=== PATIENT | female | born 1995 ===

== ENCOUNTER 2023-09-05 03:12 | Outpatient (CLI) | payer SELFPAY ==
[2023-09-07 12:13] LABS: TB Interpretation Negative (Negative); TB2 Ag minus Nil 0.02 IU/mL
== END 2023-09-05 03:13 | disposition home or self-care (01) ==
LOC: LBO 03:13
PROVIDERS: Visit Provider Nurse Practitioner Family
DX: Z02.1 Encounter for pre-employment examination (principal); Z11.1 Encounter for screening for respiratory tuberculosis
CPT/HCPCS: 36415; 86480

== ENCOUNTER 2024-01-04 10:14 | Emergency (ER) | payer OTHER, SELFPAY ==
[2024-01-04 10:21] VITALS: BP 136/80; PULSE 64; RESP 18; TEMP 36.7; O2SAT 98
--- NOTE | 2024-01-04 10:30 | DI.RAD_ITS ---
Exam(s) XR CHEST 2V PA LATERAL EXAM: XR CHEST 2V PA LATERAL CLINICAL HISTORY: fatigue TECHNIQUE: 2D digital imaging was performed. Two views. COMPARISON: No exams were available for comparison FINDINGS: HEART: Normal size. Aorta: Not dilated. PULMONARY VASCULATURE: Normal. MEDIASTINUM: Unremarkable. LUNGS: Clear. PLEURAL SPACE: No pleural effusion or pneumothorax. BONE:Unremarkable for age. SOFT TISSUES: Unremarkable. IMPRESSION: No acute abnormality. DATA REPOSITORY: RADIATION DOSE DELIVERED:
--- NOTE | 2024-01-04 10:31 | ED.GENADUL_ITS ---
Discharge Plan Disposition Patient Disposition: Home Condition: Stable Discharge Details Chief Complaint: InsectBite Clinical Impression: Body aches Primary Care Provider: Unknown,Unknown ED Provider: Victorino Kearns Home Meds and New Rx's Prescriptions: No Action escitalopram oxalate [Lexapro] 20 mg tablet 20 mg PO DAILY multivitamin Tablet 1 tab PO DAILY cholecalciferol (vitamin D3) 10 mcg (400 unit) capsule 400 unit PO DAILY Discharge Instructions Instructions: Fever, Adult ED Additional Instructions: Please follow-up closely with your primary care physician. Return to the emergency department for any worsening symptoms HPI General Date/Time Provider Initiated Documentation: 01/04/24 10:16 . HPI Narrative: 28-year-old female presents 4 days post insect bite to right upper thigh that developed larger with surrounding redness that have now subsided and converted to bruising, has felt fatigued with headache neck ache and nausea since this event. Related Data Home Medications Medication Instructions Recorded Confirmed cholecalciferol (vitamin D3) 10 400 unit PO DAILY 01/04/24 01/04/24 mcg (400 unit) capsule escitalopram oxalate 20 mg tablet 20 mg PO DAILY 01/04/24 01/04/24 (Lexapro) multivitamin 1 tab PO DAILY 01/04/24 01/04/24 Allergies Allergy/AdvReac Type Severity Reaction Status Date / Time cat dander Allergy Mild Unknown Verified 01/04/24 10:29 dog dander Allergy Mild Unknown Verified 01/04/24 10:29 tree and shrub pollen Allergy Mild Unknown Verified 01/04/24 10:29 General Stated Complaint: InsectBite SRINIVASA: 4 Review of Systems Narrative: Review of Systems Constitutional: Fatigue Eyes: negative ENT: negative Cardiovascular: negative Respiratory: negative Gastrointestinal: Nausea : negative Musculoskeletal: negative Skin: negative Neurologic: negative Psych: negative Exam Narrative Exam Narrative: Physical Examination General: alert, awake, cooperative, resting comfortably, no acute distress HEENT: normocephalic, atraumatic; PERRL, EOM intact, conjunctiva normal; no nasal discharge; moist mucous membranes, oral and pharyngeal mucosa normal, tolerating secretions Neck: supple, trachea midline; full ROM Chest: normal to inspection Respiratory: normal respiratory effort, speaking in full sentences, clear to auscultation, no wheezing, rales or rhonchi Cardiac: regular rate, regular rhythm, S1S2 intact, no murmurs rubs or gallops GI: abdomen soft, non-tender, non-distended; no palpable mass or hepatosplenomegaly Skin: Right thigh: Area of subacute ecchymosis with central region consistent with insect bite no erythema no fluctuance no purulence no crepitus no bulla no petechia no purpura Neuro: AAOx3, normal speech, moving all extremities Extremities: See skin Psych: Appropriate mood and affect Course Vital Signs Vital signs: Vital Signs Temperature 36.7 C 01/04/24 10:21 Pulse 64 01/04/24 10:21 Respiratory Rate 18 01/04/24 10:21 Blood Pressure 136/80 01/04/24 10:21 Pulse Oximetry 98 01/04/24 10:21 Temperature 36.7 C 01/04/24 10:21 Pulse 64 01/04/24 10:21 Respiratory Rate 18 01/04/24 10:21 Blood Pressure 136/80 01/04/24 10:21 Pulse Oximetry 98 01/04/24 10:21 Pain Level 0 01/04/24 10:21 Comment more just uncomfortable and i really dont feel right 01/04/24 10:21 Lab/Test Results Lab/Test Results: 01/04/24 10:16 Blood Blood Culture - Pending 01/04/24 10:16 Blood Blood Culture - Pending Medical Decision Making 28-year-old female presents with fatigue sensation of flushing headache and neck discomfort as well as nausea since sustaining likely insect bite to right thigh 4 days ago, initially large area of induration and redness has now subsided to area of subacute appearing ecchymosis central punctate region with some erythema, no fluctuance no purulence no crepitus no bulla no petechia no purpura, afebrile nontoxic nonmeningeal neurologically intact interactive ambulatory, must consider systemic reaction to insect bite versus viral illness lower suspicion for Lyme/anaplasmosis as this bite is not consistent with a tick bite no evidence of erythema migrans versus dehydration versus electrolyte derangement versus other sources of infection such as UTI lower suspicion for pneumonia given no respiratory symptoms must consider COVID flu RSV, will obtain basic labs tick panel blood cultures COVID flu RSV swab screening urinalysis screening chest x-ray fluids analgesia anti-inflammatory and antiemetics 12: 42 resting comfortably no acute distress, labs and imaging largely unremarkable. Remains hemodynamically stable and neurologically intact. Given home care instructions and return precautions. Patient has close follow-up with primary care physician Quality:SDOH Health Related Social Needs: No Data to Display PFSH All Active Problems (Updated 01/04/24 @ 12:44 by Victorino Kearns MD) Body aches (Acute) Social History Smoking risk assessment performed?: No Alcohol Intake: current Alcohol Intake frequency: a few times a month Substance use type: does not use Housing: apartment Do you feel safe at home: Yes Do you feel safe in your relationship?: Yes
[2024-01-04 10:48] LABS: Abs Immature Grans 0.03 10^3/uL (0.0-0.06); Absolute Basophil Count 0.04 10^3/uL (0.0-0.2); Absolute Eosinophil Count 0.08 10^3/uL (0.0-0.7); Absolute Lymphocyte Count 1.38 10^3/uL (1.2-3.4); Absolute Monocyte Count 0.43 10^3/uL (0.1-0.8); Absolute Neutrophil Count 2.47 10^3/uL (1.2-6.7); Basophils % 0.9 %; Eosinophils % 1.8 %; HCT 43.1 % (36.0-46.0); HGB 13.9 g/dL (11.2-15.7); Immature Grans % 0.7 %; Lymphocytes % 31.2 %; MCH 28.8 pg (27.0-33.0); MCHC 32.3 % (32.0-36.0); MCV 89 fL (80-95); MPV 8.5 fL (8.0-11.0); Monocytes % 9.7 %; Neutrophils % 55.7 %; Platelet Count 182 10^3/uL (130-400); RBC 4.83 10^6/uL (3.93-5.22); RDW 12.5 % (11.7-14.6); RDW-SD 41.4 fL; WBC 4.43 10^3/uL (4.4-10.8)
[2024-01-04 11:03] LABS: ALT 22 U/L (14-59); AST 17 U/L (15-37); Albumin 4.4 g/dL (3.4-5.0); Alkaline Phosphatase 62 U/L (46-116); Anion Gap 3.9 mmol/L (3-11); BUN 13 mg/dL (7-18); CO2 33.1 mmol/L (21.0-32.0); CREATININE 0.7 mg/dL (0.55-1.02); Calcium 9.4 mg/dL (8.5-10.1); Chloride 104 mmol/L (98-107); Estimated GFR 119.24 (mL/min/1.73m2); Glucose 95 mg/dL (74-106); Potassium 4.1 mmol/L (3.5-5.1); Sodium 141 mmol/L (136-145)
[2024-01-04] MEDS: Normal Saline 1,000 ML 1000 ML IV (11:13)
[2024-01-04] MEDS: Ondansetron 4 MG/2 ML VIAL IVP (11:14)
[2024-01-04] MEDS: ACETAMINOPHEN 1,000 MG/100 ML BTL 400 MG IVPB (11:14)
[2024-01-04 11:24] LABS: Bilirubin Negative (Negative); Blood Small (Negative); Clarity Sl Cloudy (Clear); Glucose Negative (Negative); Ketones Negative (Negative); Leukocyte Esterase Negative (Negative); Nitrite Negative (Negative); Specific Gravity 1.015 (1.005-1.025); Urobilinogen 0.2 mg/dL (Up to 0.2)
[2024-01-04 11:33] LABS: Bacteria Negative HPF (Negative); C & S Indicated? No; Casts Negative LPF (Negative); Crystals Negative HPF (Negative); Epithelial Cells Rare HPF (Negative); Mucus Negative (Negative); Other Cells Negative (Negative); RBC Negative HPF (0-2); WBC Negative HPF (0-5)
[2024-01-04 11:59] LABS: COVID-19 PCR Negative (Negative); Influenza A PCR Negative (Negative); Influenza B PCR Negative (Negative); RSV PCR Negative (Negative)
[2024-01-04 12:02] LABS: Source Nasopharynx
[2024-01-04 12:58] VITALS: BP 136/80; PULSE 64; RESP 18; TEMP 36.7; O2SAT 98
[2024-01-05 10:15] LABS: Lyme Ab w Rflx to Lyme Confirm Negative (Negative)
[2024-01-06 23:16] LABS: Anaplasma phagocytophilum Negative (Negative); B. miyamotoi PCR Negative (Negative); Babesia divergens/MO-1 Negative (Negative); Babesia duncani Negative (Negative); Babesia microti Negative (Negative); Ehrlichia chaffeensis Negative (Negative); Ehrlichia ewingii/canis Negative (Negative); Ehrlichia muris eauclairensis Negative (Negative)
== END 2024-01-04 12:58 | disposition home or self-care (01) ==
PROVIDERS: Emergency Provider Emergency Medicine
DX: M79.10 Myalgia, unspecified site (principal); R51.9 Headache, unspecified; R11.2 Nausea with vomiting, unspecified
CPT/HCPCS: 80053; 81025; 87040; 87637; 87798; 96365; 96366; 99284; 71046; 81003; 81015; 85025; 86618; 99283; J0131; J2405